=== PATIENT | female | born 1965 | race Caucasian/White ===

== ENCOUNTER 2017-03-12 20:24 | Emergency (ER) | payer MEDICAID ==
[~2017-03-12] VITALS: Ht 160 cm; Wt 54.4 kg
[2017-03-12 20:37] VITALS: BP_SYST 158
--- NOTE | 2017-03-12 20:37 | NUR ---
Patient triaged and placed in waiting room. VSS and patient appears in no acute distress at this time. Accompanied by family, awaiting available bed, and MD notified of need for MSE.
--- NOTE | 2017-03-12 21:33 | NUR ---
Patient to ER bed 7 to [facility] for evaluation. Side rails up. Report given to RICHARD COLUNGA. Addendum: 03/12/17 at 2139 by [email or web address] GAVE REPORT TO RICHARD TEMPLETON
--- NOTE | 2017-03-12 21:39 | NUR ---
Patient AAOx3, ambulatory. Patient states having neck pain with pain scale 7/10 since yesterday post-fall. Patient states she fell from her bed and denies KO. Patient denies injury and pain to any other areas of her body. Patient denies any other complaints.
--- NOTE | 2017-03-12 21:55 | NUR ---
ER Dr. Bates at bedside examining patient.
[2017-03-12] MEDS: DIAZEPAM 5 MG TABLET (VALIUM) PO ONE (22:57)
[2017-03-12] MEDS: KETOROLAC TROMETHAMINE 60 MG/2 ML VIAL IM ONE (22:58)
[2017-03-12] MEDS: OXYCODONE/ACETAMINOPHEN 5-325 TABLET PO ONE (22:58)
--- NOTE | 2017-03-12 23:33 | NUR ---
Patient calmly resting in ER bed, no signs of distress noted. Vital signs within therapeutic range.
--- NOTE | 2017-03-13 01:27 | NUR ---
Patient calmly resting in ER bed, no signs of distress noted. Vital signs within therapeutic range.
[2017-03-13] MEDS: KETOROLAC TROMETHAMINE 30 MG VIAL IM ONE (03:09)
[2017-03-13 03:15] VITALS: BP_SYST 150
--- NOTE | 2017-03-13 03:15 | NUR ---
Patient given written and verbal discharge instructions and verbalizes understanding. ER MD discussed with patient the results and treatment provided. Patient in stable condition. ID arm band removed. Rx of norco, ibuprofen, and flexeril given. Patient educated on pain management and to follow up with PMD. Pain Scale 0/10. Opportunity for questions provided and answered.
== END 2017-03-13 03:15 | disposition home or self-care (01) ==
LOC: SED 20:24
DX: M54.2 Cervicalgia (principal); F17.200 Nicotine dependence, unspecified, uncomplicated; W01.190A Fall on same level from slipping, tripping and stumbling with subsequent striking against furniture, initial encounter; Y93.89 Activity, other specified; Y92.89 Other specified places as the place of occurrence of the external cause; Y99.8 Other external cause status
CPT/HCPCS: 72040; 72072; 96372; 99284; J1885 ×2

== ENCOUNTER 2017-03-14 01:37 | Emergency (ER) | payer MEDICAID ==
[~2017-03-14] VITALS: Ht 160 cm; Wt 54.4 kg
[2017-03-14 01:42] VITALS: BP_SYST 168
--- NOTE | 2017-03-14 01:42 | NUR ---
Patient to ER bed 8 to gown for evaluation. Side rails up. Report given to Morgan RAMOS.
--- NOTE | 2017-03-14 01:50 | NUR ---
Patient to ER via triage with c/o neck pain, s/p non-syncopal fall yesterday. Patient was seen yesterday for same complaint, patient reports that pain is unrelieved by [place] at home. Patient is awake, alert and oriented in no acute distress, moving all extremities. No neuro deficits noted. Awaiting evaluation by ER MD, will continue to observe and assess.
--- NOTE | 2017-03-14 01:55 | NUR ---
Dr Hetah at bedside to evaluate patient
[2017-03-14] MEDS ORDERED: MORPHINE 4 MG/ML INJ. SYRINGE IM ONE ×2 (02:00→03:00)
[2017-03-14] MEDS ORDERED: MORPHINE 2 MG/ML INJ. SYRINGE ONE ×2 (02:20→03:08)
--- NOTE | 2017-03-14 02:20 | NUR ---
Patient reports that she has not taken any of her pain medication tonight, last time she took some pain medication was approximately 8 hours ago.
[2017-03-14] MEDS ORDERED: DIAZEPAM 10 MG/2 ML DISP.SYRIN IM ONE (03:00)
--- NOTE | 2017-03-14 03:10 | NUR ---
Patient medicated with second dose of Morphine 4 mg IM for c/o neck pain. Patient reports some relief from first dose of morphine.
[2017-03-14 03:42] VITALS: BP_SYST 173
--- NOTE | 2017-03-14 03:42 | NUR ---
Patient given written and verbal discharge instructions and verbalizes understanding. ER MD discussed with patient the results and treatment provided. Patient in stable condition. ID arm band removed. Rx of Valium given. Patient educated on pain management and to follow up with PMD. Pain Scale 6/10. Pt to take pain medication at home. Opportunity for questions provided and answered. Pt allowed fiance to sign paperwork.
== END 2017-03-14 03:42 | disposition home or self-care (01) ==
LOC: SED 01:37
DX: M54.2 Cervicalgia (principal); F17.200 Nicotine dependence, unspecified, uncomplicated
CPT/HCPCS: 96372; 99284; J2270; J3360

== ENCOUNTER 2017-10-27 23:22 | Emergency (ER) | payer MEDICAID ==
[~2017-10-27] VITALS: Ht 160 cm; Wt 54.4 kg
[~2017-10-27 23:22] MED LIST: ALPR1TAB2 PO; GABA-529 PO; MET10 PO; TRAZ-123 PO; VANC125C10 PO
[2017-10-28 00:10] VITALS: BP_SYST 155
[2017-10-28 05:29] VITALS: BP_SYST 154
== END 2017-10-28 05:29 | disposition home or self-care (01) ==
LOC: SED 23:22
DX: L98.499 Non-pressure chronic ulcer of skin of other sites with unspecified severity (principal); M54.6 Pain in thoracic spine; I10 Essential (primary) hypertension
CPT/HCPCS: 72128; 99284

== ENCOUNTER 2017-12-12 00:02 | Emergency (ER) | payer MEDICAID ==
[~2017-12-12] VITALS: Ht 160 cm; Wt 54.4 kg
[2017-12-12 00:15] VITALS: BP_SYST 147
[2017-12-12 02:12] VITALS: BP_SYST 141
== END 2017-12-12 02:12 | disposition home or self-care (01) ==
LOC: SED 00:02
DX: M79.18 Myalgia, other site (principal); I10 Essential (primary) hypertension; F17.200 Nicotine dependence, unspecified, uncomplicated; Z79.899 Other long term (current) drug therapy; W19.XXXA Unspecified fall, initial encounter; Y93.89 Activity, other specified; Y92.89 Other specified places as the place of occurrence of the external cause; Y99.8 Other external cause status
CPT/HCPCS: 99283